=== PATIENT | female | born 1940 | race Caucasian/White ===

== ENCOUNTER → 2016-05-03 | Outpatient (CLI) | payer MEDICARE, OTHER | LOC: MC.RAD 12:53 | DX: Z12.31 Encounter for screening mammogram for malignant neoplasm of breast (principal); Z85.3 Personal history of malignant neoplasm of breast ==

== ENCOUNTER 2017-11-23 08:09 | Emergency (ER) | payer MEDICARE, OTHER ==
[~2017-11-23] VITALS: Ht 165.1 cm; Wt 56.8 kg
[2017-11-23 08:38] LABS: BASO % 0.5 % (0.0-2.0); EOS # 0.1 (0.0-0.7); EOS % 0.7 % (0-4.0); GRAN # 5.8 (1.4-6.5); GRAN % 76.3 % (42.2-75.2); HEMATOCRIT 40.2 % (37.0-47.0); LYMPH # 1.1 (1.2-3.4); LYMPH % 14.2 % (20.0-51.0); MEAN CELL VOLUME 97 fl (80.0-100.0); MEAN CORPUSCULAR HEMOGLOBIN 31 pg (27.0-31.0); MEAN CORPUSCULAR HGB CONC 32 g/dl (33.0-37.0); MEAN PLATELET VOLUME 9.5 fl (7.4-10.4); MONO # 0.6 (0.1-0.6); MONO % 8.2 % (1.7-9.3); PLATELET COUNT 181 K/mm3 (130-400); RED BLOOD COUNT 4.14 M/mm3 (4.10-5.30); REDCELL DISTRIBUTION WIDTH-CV 13.6 % (11.5-14.5)
[2017-11-23 08:43] LABS: INR 1.2 (0.8-3.0); PROTHROMBIN TIME 13.1 SECONDS (9.7-12.8)
[2017-11-23 08:47] LABS: ALANINE AMINOTRANSFERASE 31 U/L (9-52); ALBUMIN 3.5 gm/dL (3.5-5.0); ALKALINE PHOSPHATASE 82 U/L (50-136); ANION GAP 5 mmol/L (7-16); AST,SGOT 23 U/L (15-37); BILIRUBIN,TOTAL 0.8 mg/dL (0.0-1.0); BLOOD UREA NITROGEN 15 mg/dL (7-17); CALCIUM 8.5 mg/dL (8.4-10.2); CARBON DIOXIDE 27 mmol/L (22-30); CHLORIDE 102 mmol/L (98-107); CREATININE, serum 0.67 mg/dL (0.52-1.25); GLUCOSE 107 mg/dL (74-106); POTASSIUM 4.1 mmol/L (3.4-5.0); SODIUM 135 mmol/L (137-145); TOTAL PROTEIN 6.3 gm/dL (6.4-8.2)
[2017-11-23 08:59] LABS: TROPONIN-I < 0.012 ng/mL (0.000-0.034)
[2017-11-23 09:37] LABS: MUCOUS Present /lpf; PH 8 (5-8); SQUAMOUS EPITHELIAL None Seen /hpf; URINE APPEARANCE Clear; URINE BACTERIA None Seen /hpf; URINE BILIRUBIN Negative (NEGATIVE); URINE BLOOD 1+ (NEGATIVE); URINE COLOR Yellow; URINE GLUCOSE Negative (NEGATIVE); URINE KETONE Trace (NEGATIVE); URINE LEUKOCYTE ESTERASE Negative (NEGATIVE); URINE NITRATE Negative (NEGATIVE); URINE PROTEIN(semi-quant) Negative (NEGATIVE); URINE RBC 0-2 /hpf; URINE UROBILINOGEN Negative (NEGATIVE); URINE WBC 0-2 /hpf
[2017-11-23] MEDS ORDERED: AMOXICILLIN 8751 TAB PO (09:44)
[2017-11-23] MEDS ORDERED: NORCO 325 MG-51 TAB PO (09:46)
[2017-11-23 09:49] LABS: COLLECTION METHOD CLEAN CATCH
[2017-11-23] MEDS ORDERED: AMBIEN 5MG TABLE5 MG PO (10:07)
[2017-11-23 11:05] VITALS: BP 120/64; PULSE 68; TEMP 98.4
== END 2017-11-23 11:05 | disposition home or self-care (01) ==
LOC: COL.ER 08:09
PROVIDERS: Emergency Medicine
DX: R55 Syncope and collapse (principal); I42.9 Cardiomyopathy, unspecified; R20.2 Paresthesia of skin; Z85.3 Personal history of malignant neoplasm of breast

== ENCOUNTER → 2017-11-28 | Outpatient (CLI) | payer MEDICARE, OTHER ==
[~2017-11-28] MED LIST: AMBIEN 5MG TABLE5 MG PO; AMOXICILLIN 8751 TAB PO; NORCO 325 MG-51 TAB PO
== END ==
LOC: COL.VAS 07:49
DX: I34.0 Nonrheumatic mitral (valve) insufficiency (principal); I07.1 Rheumatic tricuspid insufficiency; R55 Syncope and collapse

== ENCOUNTER → 2017-12-18 | Outpatient (CLI) | payer MEDICARE, OTHER | LOC: MC.RAD 07:10 | DX: Z12.31 Encounter for screening mammogram for malignant neoplasm of breast (principal) ==